=== PATIENT | female | born 1965 | race Caucasian/White ===

== ENCOUNTER → 2020-04-08 09:41 | Outpatient (BNVA) | payer BC, SELFPAY | PROVIDERS: Family Provider Physical Therapist; PCP Family Medicine; Referring Provider Family Medicine; Visit Provider Anesthesiology Pain Medicine | DX: M47.812 Spondylosis without myelopathy or radiculopathy, cervical region (principal); M25.511 Pain in right shoulder; F32.9 Major depressive disorder, single episode, unspecified; F17.210 Nicotine dependence, cigarettes, uncomplicated; Z98.890 Other specified postprocedural states; Z79.891 Long term (current) use of opiate analgesic | CPT/HCPCS: 99205 ==

== ENCOUNTER 2020-04-10 11:00 | Outpatient (CLI) | payer BC, SELFPAY ==
--- NOTE | 2020-04-10 11:19 | XR_ITS ---
WS: [id number] SHOULDER RIGHT TECHNIQUE: 3 views of the right shoulder CLINICAL INFORMATION: Z98.890 - Other specified postprocedural states COMPARISON: None. FINDINGS: Prior postoperative changes resection of the distal clavicle. Widening of the AC joint measuring 5 mm suspicious for ligamentous injury. Recommend correlation with AC joint separation. Postoperative nely gordyes rotator cuff anchors. XR/XR shoulder RT min 2V* [id number] IMPRESSION: 1. Evidence of prior resection distal right clavicle. Widening of the AC joint measuring 5 mm suspicious for ligamentous injury. Recommend correlation with t tera. 2. Prior postoperative changes rotator cuff anchors.
--- NOTE | 2020-04-10 11:19 | XR_ITS ---
WS: [id number] CERVICAL SPINE TECHNIQUE: 3 views of the cervical spine CLINICAL INFORMATION: M47.812 - Spondylosis without myelopathy or radiculopathy, cervical region COMPARISON: None. FINDINGS: Straightening of the normal cervical lordosis. Mild spondylitic changes. Normal C1-2 articulation. No rmal prevertebral soft tissues. Bilateral cervical ribs at C7. Disc space heights vertebral body heig hts well-preserved. XR/XR cervical spine 4-5V [id number] IMPRESSION: Straightening of the normal cervical lordosis with mild spondylitic changes.
== END 2020-04-10 11:01 | disposition home or self-care (01) ==
LOC: WPI 11:03 → RADWPI 11:15
PROVIDERS: PCP Family Medicine; Visit Provider Anesthesiology Pain Medicine
DX: M54.2 Cervicalgia (principal); M25.519 Pain in unspecified shoulder; M47.812 Spondylosis without myelopathy or radiculopathy, cervical region; Z98.890 Other specified postprocedural states
CPT/HCPCS: 72050; 73030

== ENCOUNTER → 2022-07-12 15:16 | Outpatient (BNVA) | payer BC, SELFPAY | PROVIDERS: PCP Family Medicine; Referring Provider Family Medicine; Visit Provider Orthopaedic Surgery | DX: M25.511 Pain in right shoulder (principal) | CPT/HCPCS: 73030 ==

== ENCOUNTER 2022-08-11 10:17 | Outpatient (CLI) | payer BC, SELFPAY ==
--- NOTE | 2022-08-11 11:00 | IR_ITS ---
WS: [id number] RIGHT SHOULDER ARTHROGRAM UNDER FLUOROSCOPY. PRIOR TO CT EVALUATION. HISTORY: M25.511 - Pain in right shoulder COMPARISON: Radiograph 07/12/2022 FLUOROSCOPY TIME: 1min [id number] # of spot films: 7 Procedure, risks and complications were explained to the patient. Consent has been obtained. Under fluoroscopic guidance the skin is marked over the medial superior third of the humeral head, cl eansed with ChloraPrep and anesthetized with lidocaine. 22-gauge spinal needle is inserted to the cor june of the humeral head. Test injection with Omnipaque reveals the needle is appropriately positioned in the joint. Approximately 12 cc of 240 Omnipaque injected without difficulty into the joint space. Patient tolerated the joint distention well. No complications. During the contrast injection a small tract of contrast extends from the glenohumeral joint through t he AC joint. Contrast collection extends supraclavicular consistent with a Sumner sign. Cortical and cartilage irregularity along the superior humeral head. There is added contrast distention of the emmie nt space. Several anchors are noted in the humeral head from prior surgery. Patient to proceed to CT. IR/IR arthrogram shoulderRT [id number] IMPRESSION: Uncomplicated RIGHT shoulder joint injection prior to CT.
--- NOTE | 2022-08-11 11:00 | CT_ITS ---
WS: [id number] CT RIGHT SHOULDER WITH CONTRAST, POST ARTHROGRAM. HISTORY: M25.511 - Pain in right shoulder Technique: All CT scans at [facility] use at least one of these dose optimization techniques: automated exposure control; mA and/or kV adjustment per patient size (includes targeted exams where dose is matched to clinical indication); or iterative reconstruction. DLP: 286.20 mGy.cm COMPARISON: Radiographs 07/12/2022 Imaging is performed post arthrogram injection of contrast into the RIGHT glenohumeral joint. There is good distention of the joint capsule. Prior resection of the distal clavicle. There is sligh t elevation of the distal remaining clavicle. No acromial impingement. There is contrast extending ex ternal to the joint space through the rotator cuff. Mildly complex tear involving the supraspinatus t endon over the humeral head. Mild atrophy of the supraspinatus tendon. No additional tears are identi fied. There is also a small amount of contrast extending external to the joint into the postsurgical site of the AC joint. Cervical surgical anchors are noted in the humeral head. No labral tear or loos e body is identified. Mild osteophytic ridging around the humeral head. CT/CT shoulder RT w con [id number] IMPRESSION: 1. Mildly complex supraspinatus tendon rotator cuff tear with mild atrophy of the supraspinatus muscle. 2. Prior rotator cuff repair. Several anchors are noted in the humeral head. 3. Resection of the distal clavicle. 4. Twain sign noted which consists of contrast extending from the glenohumera l joint across the AC joint to form a supraclavicular collection. There is a sm all amount of contrast and a few foci of air. This is often seen with advanced rotator cuff degenerative disease and may also be related to the prior surgery. 5. No labral tear is appreciated.
== END 2022-08-11 10:18 | disposition home or self-care (01) ==
PROVIDERS: PCP Family Medicine; Visit Provider Orthopaedic Surgery
DX: M75.101 Unspecified rotator cuff tear or rupture of right shoulder, not specified as traumatic (principal); M25.511 Pain in right shoulder; Z98.890 Other specified postprocedural states
CPT/HCPCS: 23350; 73201; 77002